=== PATIENT | female | born 1950 | race Hispanic/Latino ===

== ENCOUNTER → 2020-01-21 | Outpatient (CLI) | payer MEDICARE ==
--- NOTE | 2020-01-21 13:15 | Diagnostic Imaging Report ---
EXAM: FOOT LEFT COMPLETE DATE: 01/21/2020 12:55 PM INDICATION: Nonpressure ulcer of left heel COMPARISON: None FINDINGS: There is no evidence for acute fracture or dislocation. No focal lytic or blastic abnormality is identified. Scattered degenerative changes noted. Mild posterior calcaneal spurring noted. The surrounding soft tissues are unremarkable without evidence for radiopaque foreign body. IMPRESSION: No acute radiographic abnormality identified within the left foot. Signed by: Dr. John Cabrales MD on 01/21/2020 1:12 PM
--- NOTE | 2020-01-21 13:47 | Diagnostic Imaging Report ---
EXAM: CHEST 2 VIEWS DATE: 01/21/2020 12:30 PM INDICATION: Foot ulcer COMPARISON: None FINDINGS: The trachea is midline. The lungs are symmetrically expanded without evidence for large focal consolidation, pneumothorax, or significant pleural effusion. The cardiomediastinal silhouette and pulmonary vasculature are within normal limits. Degenerative changes noted of the visualized spine. No acute osseous abnormality is identified. The surrounding soft tissues are unremarkable. IMPRESSION: No acute cardiopulmonary process identified. Signed by: Dr. John Cabrales MD on 01/21/2020 1:43 PM
== END ==
LOC: CARD 10:55
PROVIDERS: ATTEND Internal Medicine Infectious Disease
DX: E11.621 Type 2 diabetes mellitus with foot ulcer (principal); L97.426 Non-pressure chronic ulcer of left heel and midfoot with bone involvement without evidence of necrosis; Z01.810 Encounter for preprocedural cardiovascular examination; Z01.811 Encounter for preprocedural respiratory examination
CPT/HCPCS: 71046; 93005; 93306; 93926

== ENCOUNTER 2020-02-01 12:12 | Outpatient (RCR) | payer OTHER, MEDICARE | END 2020-02-10 | LOC: WCC 12:12 | PROVIDERS: ATTEND Podiatrist Foot & Ankle Surgery | DX: E11.621 Type 2 diabetes mellitus with foot ulcer (principal); E11.40 Type 2 diabetes mellitus with diabetic neuropathy, unspecified; L97.426 Non-pressure chronic ulcer of left heel and midfoot with bone involvement without evidence of necrosis; I82.409 Acute embolism and thrombosis of unspecified deep veins of unspecified lower extremity; L60.8 Other nail disorders; B95.4 Other streptococcus as the cause of diseases classified elsewhere; I73.9 Peripheral vascular disease, unspecified; I87.2 Venous insufficiency (chronic) (peripheral); I66.9 Occlusion and stenosis of unspecified cerebral artery; I10 Essential (primary) hypertension; F03.90 Unspecified dementia, unspecified severity, without behavioral disturbance, psychotic disturbance, mood disturbance, and anxiety; E78.00 Pure hypercholesterolemia, unspecified; F32.9 Major depressive disorder, single episode, unspecified; I50.9 Heart failure, unspecified; I70.91 Generalized atherosclerosis; J44.9 Chronic obstructive pulmonary disease, unspecified; J45.909 Unspecified asthma, uncomplicated; Z01.810 Encounter for preprocedural cardiovascular examination; Z01.811 Encounter for preprocedural respiratory examination; Z16.12 Extended spectrum beta lactamase (ESBL) resistance ==

== ENCOUNTER → 2020-02-06 | Outpatient (CLI) | payer MEDICARE ==
[~2020-02-06] MED LIST: GADOBENATE DIMEGLUMINE 1 ML IV ONE
[2020-02-06 08:08] LABS: CREATININE, SERUM 1.02 mg/dL (0.57-1.11)
--- NOTE | 2020-02-06 10:14 | Diagnostic Imaging Report ---
MRI of the left forefoot with and without contrast. History: Foot pain. Ulcer. Heel ulcer. Diabetes. Osteomyelitis. Decreased range of motion. Technique: Multiplanar multisequence MRI of the left foot with and without IV contrast. 20 cc IV gadolinium contrast material was administered. Comparison: Radiographs 01/21/2020 Findings: No acute fracture, subluxation or avascular necrosis. Scattered degenerative change. No osseous erosion. Inferior and posterior calcaneal bone spurs. Skin thickening with ulceration at the posterior heel. No well-formed drainable fluid collection/abscess is seen. No underlying bone marrow edema or cortical destruction is seen to suggest osteomyelitis. Posterior tibial tendinosis with high-grade partial tearing at the level of the posterior medial malleolus. There is an adjacent bone spur at the posterior distal tibia best seen on series 3 image 8 and 9. No ligamentous tear. Mild diffuse muscle atrophy. The visualized neurovascular bundles are intact. Impression: Skin thickening with ulceration at the posterior heel. No well-formed drainable fluid collection/abscess is seen. No underlying bone marrow edema or cortical destruction is seen to suggest osteomyelitis. Posterior tibial tendinosis with high-grade partial tearing at the level of the posterior medial malleolus. There is an adjacent bone spur at the posterior distal tibia best seen on series 3 image 8 and 9. Signed by: Dr. Sidney Pantoja M.D. on 02/06/2020 10:10 AM
== END ==
LOC: MRI 07:25
PROVIDERS: ATTEND Podiatrist Foot & Ankle Surgery
DX: E11.621 Type 2 diabetes mellitus with foot ulcer (principal); L97.426 Non-pressure chronic ulcer of left heel and midfoot with bone involvement without evidence of necrosis
CPT/HCPCS: 36415; 73720; 82565; 84520; A9577

== ENCOUNTER 2020-02-18 13:47 | Outpatient (RCR) | payer OTHER, MEDICARE ==
[~2020-02-18 13:47] MED LIST changes: +COLLAGENASE OINTMENT 30 GM TUBE ONE; -GADOBENATE DIMEGLUMINE 1 ML IV ONE; +LIDOCAINE VISC 2% SOLN 15 ML UDC ONE
== END 2020-03-11 ==
LOC: WCC 13:47
PROVIDERS: ATTEND Internal Medicine Infectious Disease
DX: E11.621 Type 2 diabetes mellitus with foot ulcer (principal); E11.40 Type 2 diabetes mellitus with diabetic neuropathy, unspecified; L97.426 Non-pressure chronic ulcer of left heel and midfoot with bone involvement without evidence of necrosis; I66.9 Occlusion and stenosis of unspecified cerebral artery; I82.409 Acute embolism and thrombosis of unspecified deep veins of unspecified lower extremity; L60.8 Other nail disorders; I73.89 Other specified peripheral vascular diseases; I87.2 Venous insufficiency (chronic) (peripheral); F03.90 Unspecified dementia, unspecified severity, without behavioral disturbance, psychotic disturbance, mood disturbance, and anxiety; I10 Essential (primary) hypertension; E78.00 Pure hypercholesterolemia, unspecified; F32.9 Major depressive disorder, single episode, unspecified; I50.9 Heart failure, unspecified; I70.91 Generalized atherosclerosis; J44.9 Chronic obstructive pulmonary disease, unspecified; J45.909 Unspecified asthma, uncomplicated; Z01.810 Encounter for preprocedural cardiovascular examination; Z01.811 Encounter for preprocedural respiratory examination

== ENCOUNTER 2020-04-07 13:10 | Outpatient (RCR) | payer OTHER, MEDICARE ==
[~2020-04-07 13:10] MED LIST changes: -COLLAGENASE OINTMENT 30 GM TUBE ONE
== END 2020-04-11 ==
LOC: WCC 13:10
PROVIDERS: ATTEND Podiatrist Foot & Ankle Surgery
DX: E11.621 Type 2 diabetes mellitus with foot ulcer (principal); E11.40 Type 2 diabetes mellitus with diabetic neuropathy, unspecified; L97.426 Non-pressure chronic ulcer of left heel and midfoot with bone involvement without evidence of necrosis; L60.8 Other nail disorders; I73.89 Other specified peripheral vascular diseases; I82.409 Acute embolism and thrombosis of unspecified deep veins of unspecified lower extremity; I87.2 Venous insufficiency (chronic) (peripheral); F03.90 Unspecified dementia, unspecified severity, without behavioral disturbance, psychotic disturbance, mood disturbance, and anxiety; I66.9 Occlusion and stenosis of unspecified cerebral artery; I70.91 Generalized atherosclerosis; I10 Essential (primary) hypertension; I50.9 Heart failure, unspecified; E78.00 Pure hypercholesterolemia, unspecified; F32.9 Major depressive disorder, single episode, unspecified; J44.9 Chronic obstructive pulmonary disease, unspecified; J45.909 Unspecified asthma, uncomplicated; Z01.810 Encounter for preprocedural cardiovascular examination; Z01.811 Encounter for preprocedural respiratory examination

== ENCOUNTER 2020-05-06 15:18 | Outpatient (RCR) | payer MEDICARE ==
[~2020-05-06 15:18] MED LIST changes: -LIDOCAINE VISC 2% SOLN 15 ML UDC ONE; +LIDOCAINE/PRILOCAINE 2.5-2.5% KIT ONE
== END 2020-05-12 ==
LOC: WCC 15:18
PROVIDERS: ATTEND Podiatrist Foot & Ankle Surgery
DX: E11.621 Type 2 diabetes mellitus with foot ulcer (principal); E11.40 Type 2 diabetes mellitus with diabetic neuropathy, unspecified; L60.8 Other nail disorders; L97.426 Non-pressure chronic ulcer of left heel and midfoot with bone involvement without evidence of necrosis; I73.89 Other specified peripheral vascular diseases; I87.2 Venous insufficiency (chronic) (peripheral); I82.409 Acute embolism and thrombosis of unspecified deep veins of unspecified lower extremity; I66.9 Occlusion and stenosis of unspecified cerebral artery; I10 Essential (primary) hypertension; I50.9 Heart failure, unspecified; F03.90 Unspecified dementia, unspecified severity, without behavioral disturbance, psychotic disturbance, mood disturbance, and anxiety; I70.91 Generalized atherosclerosis; J44.9 Chronic obstructive pulmonary disease, unspecified; E78.00 Pure hypercholesterolemia, unspecified; F32.9 Major depressive disorder, single episode, unspecified; J45.909 Unspecified asthma, uncomplicated; Z01.810 Encounter for preprocedural cardiovascular examination; Z01.811 Encounter for preprocedural respiratory examination
CPT/HCPCS: 87071; 87075; 87186; 87205

== ENCOUNTER 2020-05-20 14:50 | Outpatient (RCR) | payer MEDICARE, OTHER | END 2020-06-11 | LOC: WCC 14:50 | PROVIDERS: ATTEND Podiatrist Foot & Ankle Surgery | DX: E11.621 Type 2 diabetes mellitus with foot ulcer (principal); E11.40 Type 2 diabetes mellitus with diabetic neuropathy, unspecified; L97.426 Non-pressure chronic ulcer of left heel and midfoot with bone involvement without evidence of necrosis; I82.409 Acute embolism and thrombosis of unspecified deep veins of unspecified lower extremity; I73.89 Other specified peripheral vascular diseases; I87.2 Venous insufficiency (chronic) (peripheral); L60.8 Other nail disorders; A49.01 Methicillin susceptible Staphylococcus aureus infection, unspecified site; E78.00 Pure hypercholesterolemia, unspecified; F03.90 Unspecified dementia, unspecified severity, without behavioral disturbance, psychotic disturbance, mood disturbance, and anxiety; F32.9 Major depressive disorder, single episode, unspecified; I10 Essential (primary) hypertension; I66.9 Occlusion and stenosis of unspecified cerebral artery; I50.9 Heart failure, unspecified; I70.91 Generalized atherosclerosis; J44.9 Chronic obstructive pulmonary disease, unspecified; J45.909 Unspecified asthma, uncomplicated; Z01.810 Encounter for preprocedural cardiovascular examination; Z01.811 Encounter for preprocedural respiratory examination ==

== ENCOUNTER 2020-07-01 13:08 | Outpatient (RCR) | payer OTHER, MEDICARE ==
[~2020-07-01 13:08] MED LIST changes: +LIDOCAINE VISC 2% SOLN 15 ML UDC ONE; -LIDOCAINE/PRILOCAINE 2.5-2.5% KIT ONE
== END 2020-07-12 ==
LOC: WCC 13:08
PROVIDERS: ATTEND Podiatrist Foot & Ankle Surgery
DX: E11.621 Type 2 diabetes mellitus with foot ulcer (principal); E11.40 Type 2 diabetes mellitus with diabetic neuropathy, unspecified; L97.426 Non-pressure chronic ulcer of left heel and midfoot with bone involvement without evidence of necrosis; I73.89 Other specified peripheral vascular diseases; I82.409 Acute embolism and thrombosis of unspecified deep veins of unspecified lower extremity; I87.2 Venous insufficiency (chronic) (peripheral); I10 Essential (primary) hypertension; I66.9 Occlusion and stenosis of unspecified cerebral artery; I50.9 Heart failure, unspecified; J44.9 Chronic obstructive pulmonary disease, unspecified; I70.91 Generalized atherosclerosis; J45.909 Unspecified asthma, uncomplicated; A49.01 Methicillin susceptible Staphylococcus aureus infection, unspecified site; E78.00 Pure hypercholesterolemia, unspecified; F03.90 Unspecified dementia, unspecified severity, without behavioral disturbance, psychotic disturbance, mood disturbance, and anxiety; F32.9 Major depressive disorder, single episode, unspecified; L60.8 Other nail disorders; Z01.810 Encounter for preprocedural cardiovascular examination; Z01.811 Encounter for preprocedural respiratory examination